=== PATIENT | female | born 1970 | race Caucasian/White ===

== ENCOUNTER 2016-12-30 22:00 | Emergency (ER) | payer MEDICARE | END 2016-12-30 22:49 | disposition home or self-care (01) | LOC: ER 22:00 | DX: F25.9 Schizoaffective disorder, unspecified (principal); Z91.14 Patient's other noncompliance with medication regimen; F17.200 Nicotine dependence, unspecified, uncomplicated; K21.9 Gastro-esophageal reflux disease without esophagitis; Z88.5 Allergy status to narcotic agent | CPT/HCPCS: 99284 ==